=== PATIENT | male | born 1980 | race Caucasian/White ===

== ENCOUNTER 2017-10-04 16:57 | Emergency (ER) | payer MEDICAID | END 2017-10-04 17:36 | disposition left against medical advice (07) | LOC: ED 16:57 | DX: Z02.89 Encounter for other administrative examinations (principal); R10.9 Unspecified abdominal pain ==

== ENCOUNTER 2018-08-12 12:38 | Emergency (ER) | payer SELFPAY ==
[2018-08-12 12:45] VITALS: BMI 28.8
--- NOTE | 2018-08-12 12:53 | ED PDOC ---
Arrival/HPI - General Historian: Patient - History of Present Illness Narrative History of Present Illness (Text): 08/12/18 12:50 38 y/o male, pmh including htn/hld, smoker, nkda, c/o lt. sided flank pain x 3 weeks with no fall or trauma. Aching and sharp pain, no urinary symptoms, concerning for renal stone, no chest pain or palpitation, no numbness or tingling, no night sweat, no rash, no other medical or psychological complaints. Past Medical History - Provider Review Nursing Documentation Reviewed: Yes - Infectious Disease Hx of Infectious Diseases: None - Cardiac Hx Hypertension: Yes - Endocrine/Metabolic Hx Endocrine Disorders: No - Psychiatric Hx Psychophysiologic Disorder: No Hx Substance Use: No - Anesthesia Hx Anesthesia: No Family/Social History - Physician Review Nursing Documentation Reviewed: Yes Family/Social History: Unknown Family HX Smoking Status: Current Some Days Smoker Hx Alcohol Use: Yes Hx Substance Use: No Allergies/Home Meds Allergies/Adverse Reactions: Allergies No Known Allergies Allergy (Verified 03/06/15 12:15) Review of Systems - Review of Systems Constitutional: absent: Fatigue, Fevers Eyes: absent: Vision Changes ENT: absent: Hearing Changes Respiratory: absent: SOB, Cough Cardiovascular: absent: Chest Pain Gastrointestinal: Abdominal Pain (lt. flank pain). absent: Diarrhea, Nausea, Vomiting Musculoskeletal: absent: Arthralgias, Back Pain Skin: absent: Rash, Pruritis Neurological: absent: Headache Psychiatric: absent: Anxiety, Depression, Suicidal Ideation Physical Exam - Systems Exam Head: Present: Atraumatic, Normocephalic Pupils: Present: PERRL Extroacular Muscles: Present: EOMI Conjunctiva: Present: Normal Ears: Present: NORMAL TM, Normal Canal. No: Erythema Mouth: Present: Moist Mucous Membranes Nose (External): Present: Atraumatic. No: Abrasion, Contusion Nose (Internal): Present: Normal Inspection, No Active Bleeding. No: Rhinorrhea, Septal Hematoma, Epistaxis Neck: Present: Normal Range of Motion, Trachea Midline. No: Meningeal Signs, MIDLINE TENDERNESS, Paraspinal Tenderness, Lymphadenopathy Respiratory/Chest: Present: Clear to Auscultation, Good Air Exchange. No: Respiratory Distress, Accessory Muscle Use, Wheezes, Decreased Breath Sounds, Rales, Retracting, Rhonchi Cardiovascular: Present: Regular Rate and Rhythm, Normal S1, S2. No: Murmurs Abdomen: Present: Normal Bowel Sounds. No: Tenderness, Distention, Peritoneal Signs, Rebound, Guarding, McBurney's Point Tender, Rovsing's Sign Present, Hernias, Scars Back: Present: Normal Inspection Upper Extremity: Present: Normal Inspection, Normal ROM, NORMAL PULSES, Neurovascularly Intact, Capillary Refill < 2s. No: Cyanosis, Edema, Deformity Lower Extremity: Present: Normal Inspection. No: Edema Neurological: Present: GCS=15, CN II-XII Intact, Speech Normal, Motor Func Grossly Intact, Normal Cerebellar Funct, Gait Normal, Memory Normal Skin: Present: Warm, Dry, Normal Color. No: Rashes Psychiatric: Present: Alert, Oriented x 3, Normal Insight, Normal Concentration Medical Decision Making ED Course and Treatment: 08/12/18 12:53 -labs -CT abdomen and pelvis -IVF -Observe and reassess 08/12/18 16:42 -CT abdomen and pelvis Atrophic left kidney. 2.2 x 3.8 cm cystic density appears to arise from the lower pole left kidney. 1.8 x 2.9 cm ovoid density at the posterior aspect pancreatic tail either arising from or abutting the pancreas. Considerations include but not limited to splenule or neoplasm. Recommend follow-up cross-sectional imaging utilizing pancreatic protocol for further evaluation. Small fat containing left inguinal hernia. -Labs are non-significant except creatine 1.6 -Trop after 24 hours is negative -Lipase within normal limit -UA show no UTI. -Pt. feels well and much better, elevated BP and advised better antihypertensive management with the pmd. -Labs and radiology results discussed with the patient, copy of the report given as well, he would need urologist/associate director finance/Gi within 2 days for further evaluation -Discharge home with tylenol, flexeril, copy of the CT report, follow up with your own pmd and GI/Urologist/Campground Caretaker/general surgeon within 2 days, return to the ER for any new or worsening signs or symptoms. - RAD Interpretation Radiology Orders: PROCEDURE: CT Abdomen and Pelvis without Oral or IV contrast. HISTORY: lt. flank pain x 3 weeks COMPARISON: None available. TECHNIQUE: Contiguous axial images of the abdomen and pelvis. No oral or IV contrast administered. Coronal and Sagittal reformats generated and reviewed. Radiation dose: Total exam DLP = 475.92 mGy-cm. This CT exam was performed using one or more of the following dose reduction techniques: Automated exposure control, adjustment of the mA and/or kV according to patient size, and/or use of iterative reconstruction technique. FINDINGS: There is limited evaluation of the solid organs without the administration of IV contrast. LOWER THORAX: Mild bibasilar atelectasis. No visible pleural effusion or pneumothorax. Small hiatal hernia/distal esophageal wall thickening. LIVER: Unremarkable. No gross lesion or ductal dilatation. GALLBLADDER AND BILE DUCTS: Unremarkable unenhanced appearance. PANCREAS: 1.8 x 2.9 cm ovoid density at the posterior aspect pancreatic tail either arising from or abutting the pancreas. Considerations include but not limited to splenule or neoplasm. Recommend cross-sectional imaging utilizing pancreatic protocol for further evaluation. SPLEEN: Unremarkable unenhanced appearance. ADRENALS: Unremarkable unenhanced appearance. KIDNEYS AND URETERS: Atrophic left kidney. 2.2 x 3.8 cm cystic density appears to arise from the lower pole left kidney. BLADDER: The urinary bladder appears unremarkable. REPRODUCTIVE: The prostate gland measures approximately 3.5 x 3.4 cm. APPENDIX: The appendix appears within normal limits of caliber. No secondary signs of acute appendicitis. BOWEL: The stomach is nondistended. Lack of oral contrast limits evaluation for bowel pathology. The bowel loops appear within normal limits of caliber without evidence of intestinal obstruction. PERITONEUM: No significant free fluid. No definite free air. LYMPH NODES: No bulky lymphadenopathy identified. VASCULATURE: No significant atherosclerotic calcifications of the aorta identified. No aortic aneurysm. BONES: Degenerative changes of the spine. OTHER FINDINGS: Small fat containing left inguinal hernia. IMPRESSION: Atrophic left kidney. 2.2 x 3.8 cm cystic density appears to arise from the lower pole left kidney. 1.8 x 2.9 cm ovoid density at the posterior aspect pancreatic tail either arising from or abutting the pancreas. Considerations include but not limited to splenule or neoplasm. Recommend follow-up cross-sectional imaging utilizing pancreatic protocol for further evaluation. Small fat containing left inguinal hernia. Grey Percher: Radiologist - PA / MOTOR VEHICLE INSPECTOR / Resident Statement / has reviewed & agrees with the documentation as recorded. Disposition/Present on Arrival - Present on Arrival Any Indicators Present on Arrival: No History of DVT/PE: No History of Uncontrolled Diabetes: No Urinary Catheter: No History of Decub. Ulcer: No History Surgical Site Infection Following: None - Disposition Have Diagnosis and Disposition been Completed?: Yes Diagnosis: Renal disease, Renal cyst, Pancreatic abnormality, Inguinal hernia Disposition: HOME/ ROUTINE Disposition Time: 16:48 Patient Plan: Discharge Patient Problems: Current Active Problems Problem Status Onset Renal disease Acute Condition: IMPROVED Additional Instructions: -Discharge home with tylenol, flexeril, copy of the CT report, follow up with your own pmd and GI/Urologist/Campground Caretaker/general surgeon within 2 days, return to the ER for any new or worsening signs or symptoms. Prescriptions: Acetaminophen [Tylenol] 2 cap PO QID PRN #30 capsule PRN Reason: Other Cyclobenzaprine [Cyclobenzaprine HCl] 10 mg PO TID PRN #21 tab PRN Reason: Other Referrals: Jt Soares MD [Medical Doctor] - Follow up with primary Kwame Burt DO [Staff Provider] - Follow up with primary Harvinder Garcia MD [Staff Provider] - Follow up with primary Paco Haas MD [Staff Provider] - Follow up with primary Forms: WORK NOTE
[2018-08-12] MEDS ORDERED: Sodium Chloride 0.9% 1,000 ML IV STA (12:54)
[2018-08-12 13:18] VITALS: TEMP 97.8
[2018-08-12 13:56] LABS: BASO # 0.03 K/mm3 (0.0-2.0); BASO % 0.4 % (0.0-3.0); EOS # 0.3 (0.0-0.7); EOS % 5.1 % (1.5-5.0); LYMPH # 1.8 (1.2-3.4); LYMPH % 27.3 % (22.0-35.0); MEAN CELL VOLUME 85.2 fl (80.0-105.0); MEAN CORPUSCULAR HEMOGLOBIN 28.8 pg (25.0-35.0); MEAN CORPUSCULAR HGB CONC 33.8 g/dl (31.0-37.0); MEAN PLATELET VOLUME 9.6 fl (7.0-11.0); MONO # 0.4 (0.1-0.6); MONO % 5.8 % (1.0-6.0); RBC 5.21 10^6/uL (3.5-6.1); RED CELL DISTRIBUTION WIDTH 13.9 % (11.5-14.5); WHITE BLOOD COUNT 6.7 10^3/uL (4.5-11.0)
[2018-08-12 14:04] LABS: ALB/GLOB RATIO 1.2 (1.1-1.8); ALBUMIN 4.1 g/dL (3.0-4.8); ALT/SGPT 21 U/L (7-56); AST/SGOT 28 U/L (17-59); BLOOD UREA NITROGEN 14 mg/dL (7-21); CALCIUM 9.4 mg/dL (8.4-10.5); GFR NON-AFRICAN AMERICAN 48; LIPASE 51 U/L (23-300)
[2018-08-12 14:42] LABS: TROPONIN I < 0.01 ng/mL
[2018-08-12 15:56] LABS: URINE BILIRUBIN NEGATIVE (NEGATIVE); URINE BLOOD NEGATIVE (NEGATIVE); URINE GLUCOSE (UA) NEGATIVE (NEGATIVE); URINE LEUKOCYTE ESTERASE NEGATIVE Leu/uL (NEGATIVE); URINE PROTEIN 100 mg/dL (<30 mg/dL); URINE UROBILINOGEN 0.2 E.U./dL (<1 E.U./dL)
[2018-08-12 15:59] LABS: URINE APPEARANCE CLEAR (CLEAR); URINE COLOR YELLOW (YELLOW)
[2018-08-12 16:40] VITALS: O2SAT 98
[2018-08-12 17:06] VITALS: BP 135/73; PULSE 93; RESP 16
--- NOTE | 2018-08-15 13:18 | CT ---
PROCEDURE: CT Abdomen and Pelvis without Oral or IV contrast. HISTORY: lt. flank pain x 3 weeks COMPARISON: None available. TECHNIQUE: Contiguous axial images of the abdomen and pelvis. No oral or IV contrast administered. Coronal and Sagittal reformats generated and reviewed. Radiation dose: Total exam DLP = 475.92 mGy-cm. This CT exam was performed using one or more of the following dose reduction techniques: Automated exposure control, adjustment of the mA and/or kV according to patient size, and/or use of iterative reconstruction technique. FINDINGS: There is limited evaluation of the solid organs without the administration of IV contrast. LOWER THORAX: Mild bibasilar atelectasis. No visible pleural effusion or pneumothorax. Small hiatal hernia/distal esophageal wall thickening. LIVER: Unremarkable. No gross lesion or ductal dilatation. GALLBLADDER AND BILE DUCTS: Unremarkable unenhanced appearance. PANCREAS: 1.8 x 2.9 cm ovoid density at the posterior aspect pancreatic tail either arising from or abutting the pancreas. Considerations include but not limited to splenule or neoplasm. Recommend cross-sectional imaging utilizing pancreatic protocol for further evaluation. SPLEEN: Unremarkable unenhanced appearance. ADRENALS: Unremarkable unenhanced appearance. KIDNEYS AND URETERS: Atrophic left kidney. 2.2 x 3.8 cm cystic density appears to arise from the lower pole left kidney. BLADDER: The urinary bladder appears unremarkable. REPRODUCTIVE: The prostate gland measures approximately 3.5 x 3.4 cm. APPENDIX: The appendix appears within normal limits of caliber. No secondary signs of acute appendicitis. BOWEL: The stomach is nondistended. Lack of oral contrast limits evaluation for bowel pathology. The bowel loops appear within normal limits of caliber without evidence of intestinal obstruction. PERITONEUM: No significant free fluid. No definite free air. LYMPH NODES: No bulky lymphadenopathy identified. VASCULATURE: No significant atherosclerotic calcifications of the aorta identified. No aortic aneurysm. BONES: Degenerative changes of the spine. OTHER FINDINGS: Small fat containing left inguinal hernia. IMPRESSION: Atrophic left kidney. 2.2 x 3.8 cm cystic density appears to arise from the lower pole left kidney. 1.8 x 2.9 cm ovoid density at the posterior aspect pancreatic tail either arising from or abutting the pancreas. Considerations include but not limited to splenule or neoplasm. Recommend follow-up cross-sectional imaging utilizing pancreatic protocol for further evaluation. Small fat containing left inguinal hernia.
== END 2018-08-12 17:04 | disposition home or self-care (01) ==
LOC: ED 12:38
DX: K40.90 Unilateral inguinal hernia, without obstruction or gangrene, not specified as recurrent (principal); N28.1 Cyst of kidney, acquired; N28.9 Disorder of kidney and ureter, unspecified; K86.9 Disease of pancreas, unspecified; E78.5 Hyperlipidemia, unspecified; I10 Essential (primary) hypertension; F17.200 Nicotine dependence, unspecified, uncomplicated
CPT/HCPCS: 74176; 80053; 81001; 83690; 83735; 84484; 85025; 99283; J7030